=== PATIENT | female | born 1995 | race Hispanic/Latino ===

== ENCOUNTER 2018-05-27 08:27 | Emergency (ER) | payer OTHER, BC ==
[2018-05-27] MEDS ORDERED: Ibuprofen 800 MG TAB ONE (09:13)
== END 2018-05-27 09:20 | disposition home or self-care (01) ==
LOC: NAV ERS 08:27
DX: S46.911A Strain of unspecified muscle, fascia and tendon at shoulder and upper arm level, right arm, initial encounter (principal); S60.811A Abrasion of right wrist, initial encounter; V43.52XA Car driver injured in collision with other type car in traffic accident, initial encounter
CPT/HCPCS: 99283

== ENCOUNTER 2018-08-14 14:40 | Emergency (ER) | payer OTHER, BC ==
[2018-08-14] MEDS ORDERED: Ketorolac Tromethamine 60 MG/2 ML VIAL ONE (15:21)
--- NOTE | 2018-08-14 15:55 | RAD ---
TWO VIEW CHEST: Comparison: None. History: Chest pain. FINDINGS: The lungs are clear. Cardiac silhouette is normal in size. No effusion or pneumothorax. Osseous struc tures are intact. IMPRESSION: No focal consolidation. POS: [id number]
== END 2018-08-14 15:43 | disposition home or self-care (01) ==
LOC: NAV ERS 14:40
DX: J20.9 Acute bronchitis, unspecified (principal); R07.9 Chest pain, unspecified
CPT/HCPCS: 71046; 93005; 96372; J1885